=== PATIENT | female | born 1960 | race Two or more races ===

== ENCOUNTER 2017-01-27 10:30 | Day surgery (SDC) | payer BC ==
--- NOTE | ~2017-01-27 | EGD ---
EGD REPORT [facility] [address] [place]. [id number] NAME: ISIAH MAI : 64 STATUS : REG [facility]#: [id number] AGE: 56 ADM/REG DATE : 01/27/17 MR#: [id number] REPORT SERV DATE: 01/27/17 DICTATED BY: GEE WATERS DATE: 01/27/17 REPORT STATUS : Draft [facility]: [facility] DATE: 01/27/17 [facility] Patient Name: Isiah Mai Date of : 1960 Attending MD: GEE WATERS, Procedure Date No Time: 01/27/2017 Procedure: Upper GI endoscopy Indications: Dysphagia Referring MD: HONG NUR Medicines: Monitored Anesthesia Care Complications: No immediate complications. Estimated blood loss: None. Procedure: Pre-Anesthesia Assessment: - ASA Grade Assessment: III - A patient with severe systemic disease. After obtaining informed consent, the endoscope was passed under direct vision. Throughout the procedure, the patient's blood pressure, pulse, and oxygen saturations were monitored continuously. The GIF [id number] was introduced through the mouth, and advanced to the second part of duodenum. The upper GI endoscopy was accomplished without difficulty. The patient tolerated the procedure well. Findings: The Z-line was irregular and was found 33 cm from the incisors. Biopsies were taken with a cold forceps for histology. Verification of patient identification for the specimen was done. Estimated blood loss was minimal. Normal mucosa was found in the upper third of the esophagus and in the middle third of the esophagus. Biopsies were taken with a cold forceps for histology. Verification of patient identification for the specimen was done. Estimated blood loss was minimal. The exam of the esophagus was otherwise normal. The stomach was normal. The cardia and gastric fundus were normal on retroflexion. The examined duodenum was normal. A guidewire was placed and the scope was withdrawn. Dilation was performed in the entire esophagus with a Savary dilator with no resistance at 54 Fr. Impression: - Z-line irregular, 33 cm from the incisors. Biopsied. - Normal mucosa was found in the upper third of the esophagus and in the middle third of the esophagus. Biopsied. - Normal stomach. EGD REPORT [address] [address] NAME: ISIAH MAI : 64 STATUS : REG [facility] [place] PAT#: [id number] AGE: 56 ADM/REG DATE : 01/27/17 MR#: [id number] REPORT SERV DATE: 01/27/17 DICTATED BY: GEE WATERS DATE: 01/27/17 REPORT STATUS : Draft TRANSCRIBED BY: [employer] DATE: 01/27/17 - Normal examined duodenum. - Dilation attempted in the entire esophagus. Successful. Recommendation: - Patient has a contact number available for emergencies. The signs and symptoms of potential delayed complications were discussed with the patient. Return to normal activities tomorrow. Written discharge instructions were provided to the patient. - Return to previous diet. - Continue present medications. - Resume Plavix (clopidogrel) at prior dose tomorrow. - Return to GI clinic in 4 weeks. Procedure Code(s): --- Professional --- 25923, Esophagogastroduodenoscopy, flexible, transoral; with insertion of guide wire followed by passage of dilator(s) through esophagus over guide wire 13724, Esophagogastroduodenoscopy, flexible, transoral; with biopsy, single or multiple Diagnosis Code(s): --- Professional --- K22.8, Other specified diseases of esophagus R13.10, Dysphagia, unspecified CPT copyright 2013 [employer]. All rights reserved. The codes documented in this report are preliminary and upon plumbing drafter review may be revised to meet current compliance requirements. GEE WATERS, 01/27/2017 11:15 AM Number of Addenda: 0 Note Initiated On: 01/27/2017 9:55 AM [address] [id number]
[~2017-01-27 10:30] MED LIST: ADVAIR250 INH; ALEVE220 MG PO; ASAB PO; BREO ELLIPTA 21 EACH INH; ESTRACE1 MG PO; ESTRATEST PO; HORMONE PATCH TOP; LIPITOR10 PO; PANTANASE; PATADAY OP; PATANASE0.6 % NAS; PLAVIX PO; PRILO PO; PRILOSEC40 MG PO; PROAIR HFA INH; PROTONIX PO; SINGULAIR1 PO; SINGULAIR5 PO; TOPAMAX200 MG PO; VALTREX1 GM PO; VALTREX5 PO; VERAMYST27.5 MCG NAS; VERELAN180 MG PO; VERELAN240 MG PO; ZYRTEC ALLGY10 MG PO; [UNRECOGNIZED DRUG - OTHER]
[2017-07-05] MEDS ORDERED: RESTASIS OPH (15:06)
[2017-07-05] MEDS ORDERED: MOTRIN IB200 MG PO (15:07)
[2017-07-05] MEDS ORDERED: LEVOTHYROXIN100 MCG PO (15:07)
== END 2017-01-27 23:59 | disposition home or self-care (01) ==
LOC: DMU 10:30
PROVIDERS: Internal Medicine Gastroenterology
PROC: 0DB18ZX Excision of Upper Esophagus, Via Natural or Artificial Opening Endoscopic, Diagnostic (ICD-10-PCS; 2017-01-27)
PROC: 0D758ZZ Dilation of Esophagus, Via Natural or Artificial Opening Endoscopic (ICD-10-PCS; 2017-01-27)
PROC: 0DB58ZX Excision of Esophagus, Via Natural or Artificial Opening Endoscopic, Diagnostic (ICD-10-PCS; principal; 2017-01-27 11:30)
PROC: 0DB28ZX Excision of Middle Esophagus, Via Natural or Artificial Opening Endoscopic, Diagnostic (ICD-10-PCS; 2017-01-27 11:30)
DX: K22.8 Other specified diseases of esophagus (principal); K21.9 Gastro-esophageal reflux disease without esophagitis; I10 Essential (primary) hypertension; I25.2 Old myocardial infarction; J45.909 Unspecified asthma, uncomplicated; G43.909 Migraine, unspecified, not intractable, without status migrainosus; E78.00 Pure hypercholesterolemia, unspecified; Z86.73 Personal history of transient ischemic attack (TIA), and cerebral infarction without residual deficits; Z88.5 Allergy status to narcotic agent; Z79.02 Long term (current) use of antithrombotics/antiplatelets; Z79.51 Long term (current) use of inhaled steroids; Z79.899 Other long term (current) drug therapy; Z90.89 Acquired absence of other organs; Z90.710 Acquired absence of both cervix and uterus; Z98.890 Other specified postprocedural states
CPT/HCPCS: 88305; 94640; J2405